=== PATIENT | male | born 1975 | race Two or more races ===

== ENCOUNTER 2018-08-23 00:58 | Emergency (ER) | payer OTHER ==
--- NOTE | 2018-08-23 01:03 | EDPHY ---
H & P Time Seen by Provider: 08/23/18 01:03 HPI/ROS: HPI CHIEF COMPLAINT: Heroin OD. HISTORY OF PRESENT ILLNESS: Patient is a 42-year-old male, 911 was called to his residence by friends who concern for heroin overdose. They report that he shot up heroin and became unresponsive. EMS reports that he was cyanotic, however eventually woke up with stimulation. No Narcan was given. He was transported to the emergency room. Upon arrival to the ER he has noted be diaphoretic, and sleepy. His initial room air sat was 80%. He is now able to talk to me. Reports that he overdosed on heroin. Non intentional. Denies any focal medical complaints at this time. Past Medical History: Heroin use. Past Surgical History: Denies recent surgery Social History: Heroin use. Family History: Noncontributory ROS REVIEW OF SYSTEMS: Somewhat limited due to him being sleepy. Exam Constitutional sleepy, diaphoretic, triage nursing summary reviewed, vital signs reviewed, awake/alert. Initial room air sat 80%. Eyes normal conjunctivae and sclera, EOMI, PERRLA. HENT normal inspection, atraumatic, moist mucus membranes, no epistaxis, neck supple/ no meningismus, no raccoon eyes. Respiratory clear to auscultation bilaterally, normal breath sounds, no respiratory distress, no wheezing. Cardiovascular rate normal, regular rhythm, no murmur, no edema, distal pulses normal. Gastrointestinal soft, non-tender, no rebound, no guarding, normal bowel sounds, no distension, no pulsatile mass. Genitourinary no CVA tenderness. Musculoskeletal no midline vertebral tenderness, full range of motion, no calf swelling, no tenderness of extremities, no meningismus, good pulses, neurovascularly intact. Skin pink, diaphoretic, no rash, skin atraumatic. Neurologic sleepy, awake, alert and oriented x 3, AAOx3, moves all 4 extremities equally, motor intact, sensory intact, CN II-XII intact, normal cerebellar, normal vision, normal speech. Psychiatric normal mood/affect. Heme/Lymph/Immune no lymphadenopathy. Differential Diagnosis: Includes but is not limited to in a particular order drug overdose, heroin overdose, low blood sugar. Medical Decision Making: Plan for this patient urine drug screen, fingerstick blood glucose, hospital monitor watch for re-sedation. Re-evaluation: Blood glucose 133 at 2:26 a.m.. 0328: Patient re-evaluated this time resting comfortably. He has not had any further sedation. He has been monitor for 2.5 hr in the emergency room. He has not any vomiting no chest pain or shortness of breath, he ambulated well to the bathroom, drank p.o. Fluids. No further sedation. He did not require any Narcan. He admits to doing heroin tonight. We had a discussion about his drug abuse and heroin addiction. Highly recommend refrain from doing heroin. We also discussed return precautions return emergency room if worsening symptoms questions or concerns. Source: Patient, EMS Constitutional: Initial Vital Signs Temperature (C) 36.7 C 08/23/18 01:02 Heart Rate 88 08/23/18 01:02 Respiratory Rate 18 08/23/18 01:02 Blood Pressure 128/81 H 08/23/18 01:02 O2 Sat (%) 80 L 08/23/18 01:02 O2 Delivery Mode Nasal Cannula O2 (L/minute) 2 Allergies/Adverse Reactions: No Known Allergies Allergy (Unverified 08/23/18 01:06) Home Medications: Medication Instructions Recorded NK [No Known Home Meds] 08/23/18 Medical Decision Making - Data Points Laboratory Results: 08/23/18 01:16 POC Glucose 133 mg/dL H mg/dL (70-100) Point of Care Test Results: Chemistry 08/23/18 01:16 POC Glucose 133 mg/dL H mg/dL (70-100) Departure - Departure Disposition: Home, Routine, Self-Care Clinical Impression: Heroin overdose Qualifiers: Encounter type: initial encounter Injury intent: accidental or unintentional Qualified Code(s): T40.1X1A - Poisoning by heroin, accidental (unintentional), initial encounter Condition: Good Instructions: Narcotic Safety (ED), Opioid Use Disorder (ED) Referrals: Patient,NotPresent [Primary Care Provider] - As per Instructions [facility],. [Clinic] - As per Instructions
[2018-08-23 04:42] VITALS: BP 128/82
== END 2018-08-23 04:42 | disposition home or self-care (01) ==
DX: T40.1X1A Poisoning by heroin, accidental (unintentional), initial encounter (principal)